=== PATIENT | female | born 1960 | race Caucasian/White ===

== ENCOUNTER 2022-02-16 12:34 | Emergency (ER) | payer BC ==
[~2022-02-16] VITALS: Ht 167.6 cm; Wt 74.8 kg
[2022-02-16] MEDS ORDERED: MORPHINE SULFATE 2 MG/1 ML DISP.SYRIN IV ONE (13:00)
[2022-02-16] MEDS ORDERED: ONDANSETRON 4 MG/2 ML VIAL IV ONE (13:00)
[2022-02-16] MEDS ORDERED: IV NORMAL SALINE 1000 ML BAG IV ONE (13:00)
[2022-02-16] MEDS ORDERED: PROG200C15 PO (13:06)
[2022-02-16] MEDS ORDERED: THYROID MEDICATION (13:06)
[2022-02-16] MEDS ORDERED: ESCI20TA PO (13:06)
[2022-02-16] MEDS ORDERED: METHYLFOLATE PO (13:06)
[2022-02-16] MEDS ORDERED: MORPHINE SULFATE 4 MG/1 ML DISP.SYRIN ONE (13:15)
[2022-02-16] MEDS ORDERED: ONDANSETRON 4 MG/2 ML VIAL ONE (13:15)
[2022-02-16 13:38] LABS: HEMATOCRIT 45.1 % (31.2-41.9); MEAN CORPUSCULAR HEMOGLOBIN 30.6 uug (24.7-32.8); MEAN CORPUSCULAR VOLUME 92.1 fL (75.5-95.3); PLATELET COUNT (AUTO) 243 K/uL (179-408)
[2022-02-16 13:44] LABS: CREATININE 0.6 mg/dL (0.6-1.3); POTASSIUM 3.6 mmol/L (3.5-5.1)
[2022-02-16 13:49] LABS: BILIRUBIN,DIRECT 0.1 mg/dL (0.0-0.2); BILIRUBIN,TOTAL 0.5 mg/dL (0.2-1.0); TOTAL PROTEIN, SERUM 6.3 g/dL (6.4-8.2)
[2022-02-16] MEDS ORDERED: AMOX-430 PO ×2 (15:25→15:48)
[2022-02-16] MEDS ORDERED: HYDR-4209 PO ×2 (15:25→15:48)
[2022-02-16] MEDS ORDERED: ONDA4TAB5 PO ×2 (15:25→15:48)
[2022-02-16] MEDS ORDERED: IBUP-1955 PO ×2 (15:25→15:48)
[2022-02-16] MEDS ORDERED: OXYC-128 PO (16:50)
== END 2022-02-16 16:15 | disposition home or self-care (01) ==
LOC: ER 12:37
DX: K80.20 Calculus of gallbladder without cholecystitis without obstruction (principal); R11.2 Nausea with vomiting, unspecified; I88.0 Nonspecific mesenteric lymphadenitis; R10.10 Upper abdominal pain, unspecified; Z90.710 Acquired absence of both cervix and uterus
CPT/HCPCS: 36415; 74176; 76705; 80048; 80076; 83690; 85025; 96374; 96375; 99285; J2270; J2405; J7040; A4663